=== PATIENT | female | born 1985 | race Caucasian/White ===

== ENCOUNTER 2020-12-23 18:06 | Emergency (ER) | payer BC ==
[2020-12-23] MEDS ORDERED: Ketorolac 60 MG/2 ML SDV IM ONE (18:27)
--- NOTE | 2020-12-23 18:37 | EDM.PDOC ---
ED HPI GENERAL MEDICAL PROBLEM - General Chief Complaint: Back Pain or Injury Stated Complaint: BACK PAIN Time Seen by Provider: 12/23/20 18:10 - History of Present Illness INITIAL COMMENTS - FREE TEXT/NARRATIVE: Pt comes to the ER with C/O low back pain on the Rt side. this started about 5 yrs ago. She has a bulging disk and has had injections for it. Now it flared up a few days ago after hiking with her daughter on a class trip. There is no pain radiating down her leg. She is holding her low back lateral to the spine. No recent falls or injuries. - Related Data Allergies Allergy/AdvReac Type Severity Reaction Status Date / Time No Known Allergies Allergy Verified 05/09/15 20:36 Home Meds: Home Meds Aspirin/Caffeine [[employer] Back & Body Caplet] 1 each PO Q6HR PRN 05/09/15 [History] Past Medical History HEENT History: Reports: Impaired Vision Cardiovascular History: Reports: None Respiratory History: Reports: None, Bronchitis, Recurrent, Other (See Below) Other Respiratory History: bronchitis regulalry when smoker, quit 4 years ago (10 year history) Gastrointestinal History: Reports: None, Other (See Below) Other Gastrointestinal History: infection in gall bladder hopsitalized when 14 Genitourinary History: Reports: None [employer] History: Reports: Musculoskeletal History: Reports: Back Pain, Chronic, Fracture, Neck Pain, Chronic, Other (See Below) Other Musculoskeletal History: fx thumb, some muscle issues in R forearm, some carpal tunnel, sees chiro for neck and back Neurological History: Reports: Headaches, Chronic Psychiatric History: Reports: None Endocrine/Metabolic History: Reports: Diabetes, Gestational Hematologic History: Reports: Other (See Below) Other Hematologic History: sometimes low iron Immunologic History: Reports: None Oncologic (Cancer) History: Reports: None Dermatologic History: Reports: None Social & Family History - Family History Family Medical History: No Pertinent Family History ED ROS GENERAL - Review of Systems Review Of Systems: Comprehensive ROS is negative, except as noted in HPI. Musculoskeletal: Reports: Back Pain ED EXAM,LOWER BACK PAIN/INJURY - Physical Exam Exam: See Below General Appearance: Other (She is holding her low back Rt side with her Rt hand.) Back Exam: Paraspinal Tenderness, Other (on the Rt side with mils tightness noted. No tenderness midline.) Course - Orders/Labs/Meds Meds: Medications Discontinued Medications Generic Name Dose Route Start Last Admin Trade Name Aleah PRN Reason Stop Dose Admin Ketorolac Tromethamine 60 mg 12/23/20 18:27 Ketorolac 60 Mg/2 Ml Sdv IM 12/23/20 18:28 ONETIME ONE - Re-Assessments/Exams Free Text/Narrative Re-Assessment/Exam: 12/23/20 18:36 Toradol 60 mg Given IM. She is to start using her muscle relaxer she has at home, Rodolfo she thinks it is. She is to use Motrin 600 mg 2-3 times a day for a few days, then wean down slowly. Ice or heat as needed. Follow up in the clinic in a week or so. Departure - Departure Time of Disposition: 18:35 Disposition: Home, Self-Care 01 Condition: Good Clinical Impression: Low back strain Qualifiers: Encounter type: initial encounter Qualified Code(s): S39.012A - Strain of muscle, fascia and tendon of lower back, initial encounter - Discharge Information *PRESCRIPTION DRUG MONITORING PROGRAM REVIEWED*: Yes *COPY OF PRESCRIPTION DRUG MONITORING REPORT IN PATIENT SHIRA: Yes Additional Instructions: Use Motrin 600 mg 2-3 times a day for a few days, then wean down. Use Th muscle relaxer for 1 week, then as needed. Activity as tolerated. Ice or heat as needed. Follow up in the clinic soon for re check.
[2020-12-23 18:40] VITALS: BP 128/91; PULSE 93
== END 2020-12-23 18:45 | disposition home or self-care (01) ==
LOC: LB.ED 18:06
DX: S39.012A Strain of muscle, fascia and tendon of lower back, initial encounter (principal); Z79.82 Long term (current) use of aspirin; X58.XXXA Exposure to other specified factors, initial encounter
CPT/HCPCS: 96372; 99283; J1885